=== PATIENT | male | born 1990 | race African-American/Black ===

== ENCOUNTER 2024-04-25 12:47 | Inpatient (IN) | payer OTHER ==
[~2024-04-25] VITALS: Ht 157.5 cm; Wt 78.9 kg
--- NOTE | 2024-04-25 13:04 | NUR ---
PACIENTE ALERTA Y ORIENTADO X3. REFIERE DOLOR ABDOMINAL DESDE HACEN 2 [place]. NO REFIERE VOMITOS NI DIARREAS AL MOMENTO DEL TRIAGE. SE ESTIMAN VITALES Y SE UBICA.
[2024-04-25] MEDS ORDERED: ONDANSETRON HCL 2 MG/ML VIAL IV ONE (14:30)
[2024-04-25] MEDS ORDERED: KETOROLAC TROMETHAMINE 30 MG VIAL IV ONE (14:30)
[2024-04-25] MEDS ORDERED: FAMOTIDINE/PF 20 MG/2 ML VIAL IV ONE (14:30)
[2024-04-25] MEDS ORDERED: 0.9 % SODIUM CHLORIDE 1,000 ML IV ONE (14:30)
--- NOTE | 2024-04-25 14:32 | NUR ---
PTE ALERTA Y ORIENTADO X3 RN [place] LE ORIENTA SOBRE TX MEDICCO LO CUAL REFIERE ENTENDER Y ACEPTAR SE LE REALIZAN MUESTRAS DE LAB BAJO MEDIDAS ASEPTICAS Y SE LE ADMINISTRA MEDICAMENTOS MARILIN ORDEN MEDICA
[2024-04-25 14:57] LABS: HEMATOCRIT 40.7 % (39.0-48.0); HEMOGLOBIN 14.2 g/dL (13-16.00); MEAN CELL VOLUME 87.1 fL (80.0-100.00); MEAN CORPUSCULAR HEMOGLOBIN 30.3 pg (27.00-32.0); MEAN CORPUSCULAR HGB CONC 34.8 g/dl (32.0-36.0); PLATELET COUNT 222 K/uL (150-450); RED BLOOD COUNT 4.67 M/uL (4.00-6.00); RED CELL DISTRIBUTION WIDTH 12.7 % (11.5-14.5)
[2024-04-25 16:25] LABS: ALBUMIN 3.5 gm/dL (3.4-5.0); BILIRUBIN TOTAL 0.82 mg/dL (0.3-1.2); CALCIUM 8.8 mg/dL (8.5-10.1); CREATININE SERUM 1.18 mg/dL (0.70-1.30); GFR 70.66; GLOBULINA 3.8 G/DL (2.4-3.5); POTASSIUM 3.65 mEq/L (3.5-5.1); TOTAL PROTEIN 7.3 gm/dL (6.4-8.2)
[2024-04-25 17:35] LABS: URINE APPEARANCE Clear; URINE BILIRRUBIN Negative (NEGATIVE); URINE BLOOD Negative; URINE COLOR Yellow; URINE GLUCOSE Negative (NEGATIVE); URINE KETONE Trace (NEGATIVE); URINE LEUKOCYTE Negative; URINE NITRATE Negative; URINE PROTEIN Negative (NEGATIVE); URINE UROBILINOGEN 0.2 E.U./dl
[2024-04-25 17:36] LABS: URINE EPITHELIAL CELLS 2.3 uL (0.0-38.8); URINE WBC 4.6 uL (0.0-23.2)
[2024-04-25 17:52] LABS: URINE BACTERIA 0 uL (0.0-1933); URINE CAST 0.15 uL (0.0-1.40); URINE RBC 1.5 uL (0.0-20.8)
[2024-04-25] MEDS ORDERED: PIPERACILLIN/TAZOBACTAM SODIUM 3.375 GM VIAL IV ONE (21:00)
[2024-04-25] MEDS ORDERED: 0.9 % SODIUM CHLORIDE 1,000 ML IV SCH (21:30)
[2024-04-25] MEDS ORDERED: ONDANSETRON HCL 4 MG in 0.9 % SODIUM CHLORIDE 50 ML IV PRN (21:30)
[2024-04-25] MEDS ORDERED: MEPERIDINE HCL/PF 25 MG/ML VIAL IM ONE (21:30)
[2024-04-25] MEDS ORDERED: ACETAMINOPHEN 500 MG GEL..CAP PO PRN (21:30)
[2024-04-25] MEDS ORDERED: MEPERIDINE HCL/PF 25 MG/ML VIAL IM PRN (22:00)
[2024-04-25 22:11] LABS: INR 1.19; PROTHROMBIN TIME 12.8 SECONDS (9.0-11.5)
[2024-04-25 23:18] VITALS: BP 118/60; O2SAT 97
[2024-04-26] MEDS ORDERED: PIPERACILLIN/TAZOBACTAM SODIUM 3.375 GM in DEXTROSE 5 % IN WATER 100 ML IV SCH
[2024-04-26 01:32] VITALS: BP 123/72; O2SAT 100
[2024-04-26] MEDS ORDERED: FAMOTIDINE/PF 20 MG in 0.9 % SODIUM CHLORIDE 8 ML IV PUSH SCH (09:00)
[2024-04-26 09:40] VITALS: BP 130/63; O2SAT 99
[2024-04-26] MEDS ORDERED: CEFAZOLIN SODIUM 1,000 MG VIAL IV ONE (14:30)
[2024-04-26] MEDS ORDERED: GABAPENTIN 300 MG CAPSULE PO SCH (17:00)
[2024-04-26] MEDS ORDERED: MORPHINE SULFATE 4 MG/ML VIAL IV ONE ×2 (17:05→17:35)
[2024-04-26 20:00] VITALS: BP 117/77; O2SAT 96
[2024-04-26] MEDS ORDERED: ACETAMINOPHEN 500 MG GEL..CAP PO SCH (20:00)
[2024-04-27] VITALS: BP 103/61; O2SAT 95
[2024-04-27 09:00] VITALS: BP 134/72; O2SAT 98
[2024-04-27] MEDS ORDERED: ENOXAPARIN SODIUM 40 MG/0.4 ML SYRINGE SUBCUTANEO SCH (09:00)
[2024-04-27] MEDS ORDERED: MORPHINE SULFATE 4 MG/ML CARTRIDGE IV PRN (10:15)
[2024-04-27] MEDS ORDERED: ONDANSETRON HCL 2 MG/ML VIAL IV ONE (10:15)
[2024-04-27] MEDS ORDERED: POLYETHYLENE GLYCOL 3350 17 GM BLIST.PACK PO SCH (10:16)
[2024-04-27 11:15] LABS: HEMATOCRIT 38.4 % (39.0-48.0); HEMOGLOBIN 13.3 g/dL (13-16.00); MEAN CELL VOLUME 85.3 fL (80.0-100.00); MEAN CORPUSCULAR HEMOGLOBIN 29.6 pg (27.00-32.0); MEAN CORPUSCULAR HGB CONC 34.8 g/dl (32.0-36.0); PLATELET COUNT 249 K/uL (150-450); RED CELL DISTRIBUTION WIDTH 12.8 % (11.5-14.5)
[2024-04-27 11:47] LABS: CALCIUM 8.6 mg/dL (8.5-10.1); CREATININE SERUM 1.1 mg/dL (0.70-1.30); GFR 76.63; POTASSIUM 4.08 mEq/L (3.5-5.1)
[2024-04-27 12:02] LABS: PHOSPHOROUS 1.8 mg/dL (2.5-4.9)
[2024-04-27] MEDS ORDERED: HYOSCYAMINE SULFATE 0.125 MG TAB.SUBL SL PRN (12:15)
[2024-04-27 16:21] VITALS: BP 122/66; O2SAT 98
[2024-04-28 00:29] VITALS: BP 115/71; O2SAT 95
[2024-04-28] MEDS ORDERED: SOD PHOSPHATE,MONOBASIC-DIBAS 3 MMOL/ML VIAL IV NR (10:00)
[2024-04-28 17:00] VITALS: BP 165/83; O2SAT 97
[2024-04-28 22:42] VITALS: BP 117/70
[2024-04-29 00:38] VITALS: BP 100/63; O2SAT 98
[2024-04-29 08:00] VITALS: BP 125/74; O2SAT 100
[2024-04-29 16:36] VITALS: BP 127/83; O2SAT 100
[2024-04-30 00:05] VITALS: BP 107/68; O2SAT 97
[2024-04-30 08:20] VITALS: BP 136/82; O2SAT 99
== END 2024-04-30 14:10 | disposition home or self-care (01) | DRG 399 ==
LOC: ER 12:49 → SURH 22:07 → SEC-K 22:07 → SURH 04-26 00:25
PROVIDERS: Emergency Medicine; Nurse Practitioner Family; Student in an Organized Health Care Education/Training Program; ADMIT Internal Medicine; ATTEND Internal Medicine
PROC: BW21ZZZ Computerized Tomography (CT Scan) of Abdomen and Pelvis (ICD-10-PCS; 2024-04-25)
PROC: 0D9W3ZZ Drainage of Peritoneum, Percutaneous Approach (ICD-10-PCS; 2024-04-26)
PROC: 0DTJ4ZZ Resection of Appendix, Percutaneous Endoscopic Approach (ICD-10-PCS; principal; 2024-04-26 14:00)
DX: K35.33 Acute appendicitis with perforation, localized peritonitis, and gangrene, with abscess (principal); B96.29 Other Escherichia coli [E. coli] as the cause of diseases classified elsewhere; B96.5 Pseudomonas (aeruginosa) (mallei) (pseudomallei) as the cause of diseases classified elsewhere; K59.00 Constipation, unspecified; D72.829 Elevated white blood cell count, unspecified